=== PATIENT | female | born 1955 | race Caucasian/White ===

== ENCOUNTER 2016-04-18 07:27 | Inpatient (IN) | payer OTHER ==
[2016-04-18] MEDS ORDERED: 1/2 NS 500 ML ONE ×2 (08:21→12:51)
[2016-04-18 08:32] LABS: HEMATOCRIT 34.7 % (37.0-47.0); HEMOGLOBIN 11.2 g/dL (12.0-16.0); MCH 31.5 PG (27-31); MCHC 32.3 g/dL (33-37); MCV 97.5 FL (81-99); MPV 9.3 FL (7.4-10.4); RBC 3.56 XMIL (4.2-5.4)
[2016-04-18 08:41] LABS: CALCIUM 9.1 mg/dL (8.8-10.2); POTASSIUM 5.3 mmol/L (3.5-5.1)
[2016-04-18] MEDS ORDERED: CORDARONE PO ONE (09:50)
[2016-04-18] MEDS ORDERED: PEPCID ONE (09:57)
[2016-04-18] MEDS ORDERED: REGLAN ONE (09:57)
[2016-04-18] MEDS ORDERED: LOPRESSOR ONE (09:58)
[2016-04-18] MEDS ORDERED: KEFZOL ONE (10:59)
[2016-04-18] MEDS ORDERED: DIPRIVAN 1% ONE (12:09)
[2016-04-18] MEDS ORDERED: MORPHINE ONE (12:15)
[2016-04-18] MEDS ORDERED: HYDROXYZINE PO PRN ×2 (12:25→19:03)
[2016-04-18] MEDS ORDERED: BENADRYL PO PRN (12:25)
[2016-04-18] MEDS ORDERED: SYSTANE EYE DROPS BOTH EYES PRN (12:25)
[2016-04-18] MEDS ORDERED: ZOFRAN PO PRN (12:25)
[2016-04-18] MEDS ORDERED: DULCOLAX PR PRN (12:25)
[2016-04-18] MEDS ORDERED: SALINE LOCK IV FLUID XX ONE (12:41)
[2016-04-18] MEDS ORDERED: EPHEDRINE ONE (12:51)
[2016-04-18] MEDS ORDERED: XYLOCAINE-MPF 2% ONE (12:51)
--- NOTE | 2016-04-18 13:15 | OPERATIVE NOTE ---
PROCEDURE DATE: 04/18/2016 PROCEDURE PERFORMED: Left below-knee amputation. SURGEON: Jareth Hale MD CORROSION CONTROL ENGINEER: Radha. PREOPERATIVE DIAGNOSIS: Ischemic gangrene of the left heel. POSTOPERATIVE DIAGNOSIS: Ischemic gangrene of the left heel. OTHER DIAGNOSES: 1. Diabetes. 2. Chronic kidney disease, stage 5. INDICATIONS: This is a 60-year-old diabetic with end-stage renal disease who has ischemic gangrene of the left heel. She has had inadequate blood flow for healing. She is scheduled for a left below-knee amputation. Her PVRs showed that a BKA should heal. DESCRIPTION OF PROCEDURE: Satisfactory general anesthesia was achieved. The left leg was prepped and draped in a sterile fashion. We marked the skin 3 fingerbreadths below the tibial tubercle anteriorly and then marked 15 cm distal to that posteriorly. We then made a curvilinear incision anteriorly in the area marked below the tibial tubercle and then we made a posterior flap that extended 15 cm distal to that. We carried our incision into the subcutaneous tissue. We then used electrocautery to cauterize down to the tibia. We cauterized through the anterior compartment muscle. We then passed a Gigli saw behind the tibia and transected the tibia with the Gigli saw, tapering it anteriorly. We then raised the periosteum off the fibula and cut it with a bone biter proximal to the transected the tibia. The anterior tibial vessels were clamped, divided, and suture ligated with a 2-0 silk suture ligature. We then used a guillotine knife to go behind both the tibia and fibula to the distal extent of our posterior flap and then transected the muscle. At that point, we handed off the distal leg and foot. We achieved satisfactory hemostasis with 3- 0 silk suture ligatures. We debrided back some of the tendinous tissue. We then irrigated. We used a file on the tibia to smooth it. We then irrigated the stump copiously with warm saline. Hemostasis was satisfactory. We then folded the muscle anteriorly using 0 Polysorb to approximate the muscle to the tibia and the anterior compartment muscle. We then used 3-0 Polysorb in the subcutaneous tissue. We then closed the skin with antonio. The skin was under no tension. We then used Xeroform gauze, followed by sterile 4 x 4's, followed by sterile Kerlix. We then used an OCL splint to splint the knee straight. We then used a 6-inch YVETTE on top of that to secure the OCL splint. She tolerated it well. Estimated blood loss was about 100 mL. She was sent to the recovery room in satisfactory condition.
[2016-04-18] MEDS: PHOSLO PO SCH ×2 (14:41→18:28)
[2016-04-18] MEDS: ULTRAM PO SCH ×3 (14:41→21:21)
[2016-04-18] MEDS ORDERED: INSULIN PEN NEEDLES ONE (16:26)
[2016-04-18] MEDS ORDERED: ZOFRAN IV PRN (18:59)
[2016-04-18] MEDS ORDERED: PROTEIN SUPPLEMENT PO SCH (21:00)
[2016-04-18] MEDS: RESTASIS 0.05% OPH DROPS BOTH EYES SCH (21:20)
[2016-04-18] MEDS: PERIDEX MT SCH (21:20)
[2016-04-18] MEDS: NEURONTIN PO SCH (21:22)
[2016-04-18] MEDS: LANTUS SUBQ SCH ×2 (21:23→21:28)
[2016-04-18] MEDS: HYDROCORTISONE 0.5% CREAM TOP SCH (21:24)
[2016-04-18] MEDS: NORCO-10 PO PRN (22:54)
[2016-04-18] MEDS: LOPRESSOR PO SCH (22:55)
--- NOTE | 2016-04-18 23:12 | CONSULTATION ---
DATE OF CONSULTATION: 04/18/2016 Reason FOR ADMISSION: Left BKA. REASON FOR CONSULTATION: ESRD management. CONSULTING PHYSICIAN: Dr. Hale. HISTORY OF PRESENT ILLNESS: This is a 60-year-old female well known to our service for end-stage renal disease on hemodialysis on a Monday, , Monday schedule at the [facility]. The patient was admitted today for a planned left BKA secondary to left heel gangrene. The patient underwent the surgery today satisfactorily and is status post recovery. We have been asked to see her to maintain her hemodialysis schedule and assist with medical management. PAST MEDICAL HISTORY: End-stage renal disease. Hemodialysis Monday, , Monday, diabetes, hypertension, paroxysmal atrial fibrillation, chronic constipation, depressive disorder, hyperlipidemia, hypertension, anemia secondary to ESRD, hyperphosphatemia secondary to ESRD, osteodystrophy secondary to ESRD. PAST SURGICAL HISTORY: She has had multiple amputations to the right and left hand, she has had 2 BKAs now. She has dialysis access cataract surgery. ALLERGIES: Vancomycin. HOME MEDICATIONS: As per chart. FAMILY HISTORY: Noncontributory. SOCIAL HISTORY: She lives at the [facility] in [place]. No ETOH, tobacco or illicit drug use. REVIEW OF SYSTEMS: Pain to recent surgical site. Negative otherwise. EXAM: Vital signs: Temperature 97.6 degrees, pulse 52, respiratory rate 16, blood pressure 109/70, intake and output have not been measured. General: This is a chronically ill-appearing middle-aged female who appears much older than her stated age. She is awake, alert. HEENT: Normocephalic atraumatic. Oral mucosa dry, dentition poor, tongue is midline. Neck: Supple. There is no JVD. Cardiovascular: Regular rate and rhythm. Systolic murmur. Pulmonary: Equal excursion. She is clear bilaterally. There is no increased work of breathing. Abdomen: Obese, soft, positive bowel sounds. : Not inspected. She has minimal void with hemodialysis assist. Extremities: She has bilateral BKA, left most recent is wrapped in a gauze and Elmer bandage. There was no blood noted to the bandage. Upper extremities with multiple areas of amputation well healed. Integumentary: Skin is warm and dry otherwise. She is pale. Neuro: Grossly nonfocal. She is slow to speak. LAB DATA: WBC of 10.4, hemoglobin 11.2, hematocrit 34.7 and platelet count of 325,000. Sodium 132, potassium 5.3, CO2 25, BUN 33, creatinine 3.1, calcium 9.1. ASSESSMENT AND PLAN: 1. End-stage renal disease management. Patient is due for her routine dialysis Monday. Will plan to dialyze her at that time. Check labs in the morning. Adjust bath as appropriate. 2. Left below-knee amputation new followed by Dr. Hale. 3. Electrolytes, acid-base balance, anemia. These are stable. Continue to monitor. Treat as warranted. 4. Hypertension controlled. 5. Fluid volume. She is not overloaded. Data reviewed, discussed with Damaso Krueger on 04/18/16. I agree with the above assessment and plan of care. rg Dictated by TRICIA Taylor for Syd Amaral MD MTDD
[2016-04-19] MEDS: NORCO-10 PO PRN ×2 (05:56→23:01)
[2016-04-19] MEDS: NEPHROCAPS PO SCH ×2 (06:54→21:10)
[2016-04-19] MEDS ORDERED: NS 2,000 ML MISC PRN (08:07)
[2016-04-19] MEDS ORDERED: NS 2,000 ML ONE ×2 (08:57→13:17)
[2016-04-19] MEDS ORDERED: HEPARIN ONE ×2 (08:57→13:17)
[2016-04-19] MEDS: ULTRAM PO SCH ×4 (08:59→21:17)
[2016-04-19] MEDS: HYDROCORTISONE 0.5% CREAM TOP SCH ×3 (09:00→21:13)
[2016-04-19] MEDS: PHOSLO PO SCH ×3 (09:00→19:06)
[2016-04-19 16:08] LABS: ALBUMIN 2.8 g/dL (3.5-5.0); CALCIUM 8.5 mg/dL (8.8-10.2)
--- NOTE | 2016-04-19 16:18 | PROGRESS NOTE ---
DATE: 04/19/2016 DATE AND TIME SEEN: 04/19/2016 at 0840 hours. SUBJECTIVE: Ms. Smith is currently resting in bed. She is in no acute distress. She is in need for assistance with eating her breakfast. OBJECTIVE: Vital Signs: Temperature 98.9 degrees, blood pressure 110/37, heart rate 58, and respirations 18. She is on 3 L nasal cannula. Last recorded saturation 98%. She has had 700 in; she has had 100 out per estimated blood loss from debridement yesterday. LABS: Her most recent labs: These are currently pending with need to be drawn on dialysis. Her last potassium was 5.3 and a hemoglobin of 11.2 on the . PHYSICAL EXAMINATION: General: This is a 60-year-old white female. She is chronically ill in appearance. She is in no acute distress. She is awake and alert. Skin: Warm and dry. HEENT: Normocephalic, atraumatic. Mucous membranes are dry. Poor dentition. Neck: Supple. Trachea midline. No JVD. Cardiovascular: Regular rate and rhythm. She has a soft systolic murmur. Pulmonary: Clear to auscultation bilaterally. Equal excursion. No use of accessory muscles. Abdomen: Large, round, soft, nontender. Hypo bowel sounds. Genitourinary: Not inspected. Minimal void with dialysis assist. Extremities: Have bilateral BKA, left most recent. This is wrapped in a gauze with an Elmer bandage to the right. No drainage noted to the bandage. On upper extremities, continue with multiple areas of amputation as well, but healed. Integumentary: Skin is warm and dry. No rashes or lesions. Neurological: Alert and oriented x3. ASSESSMENT AND PLAN: 1. End-stage renal disease. Patient is due for her routine dialysis treatment today. We will place her on a 2 K bath. She is to dialyze for 3.5 hours. We will attempt to pull her to her dry weight. 2. Electrolytes and acid-base balance. Again, with correction on dialysis. 3. Below the knee amputation followed by Dr. Hale on the left. 4. Hypertension. This is currently controlled. 5. Fluid volume overload. This is controlled with dialysis. I would like to thank you for allowing us to follow with this patient. Data reviewed, discussed with Israel Manuel on 04/19/16. I agree with the above assessment and plan of care. rg Dictated by TRICIA Skelton for Syd Amaral MD [facility]
[2016-04-19] MEDS: MIRALAX PO SCH (19:04)
[2016-04-19] MEDS: LOPRESSOR PO SCH ×2 (19:04→21:10)
[2016-04-19] MEDS: NEURONTIN PO SCH ×2 (19:04→21:10)
[2016-04-19] MEDS: LACTULOSE PO SCH (19:04)
[2016-04-19] MEDS: PRILOSEC PO SCH (19:05)
[2016-04-19] MEDS: PRINIVIL PO SCH (19:05)
[2016-04-19] MEDS: RESTASIS 0.05% OPH DROPS BOTH EYES SCH (19:05)
[2016-04-19] MEDS: PERIDEX MT SCH ×2 (19:05→21:10)
[2016-04-19] MEDS: PERCOCET-10 PO PRN (21:10)
[2016-04-19] MEDS: LANTUS SUBQ SCH (21:13)
[2016-04-20] MEDS: DILAUDID IV PRN ×3 (00:31→11:54)
[2016-04-20] MEDS: PERCOCET-10 PO PRN ×3 (04:11→21:08)
[2016-04-20] MEDS: RESTASIS 0.05% OPH DROPS BOTH EYES SCH ×4 (04:11→22:06)
--- NOTE | 2016-04-20 09:07 | PROGRESS NOTE ---
DATE: 04/20/2016 SUBJECTIVE: Patient is resting in bed. She is complaining that her pain has not been adequately controlled. She states that she had to get to the point of crawling before she could get any p.r.n. medication. OBJECTIVE: Vital Signs: Temperature 97.9 degrees, pulse 57, respiratory rate 16, blood pressure 128/54, intake 640 mL, output 3 L. Physical Examination: General: Middle-aged female who is chronically ill- appearing and appears much older than her stated age. She is awake and alert, verbal today. HEENT: Normocephalic, atraumatic. Dentition poor. Oral mucosa is dry. Neck: Supple. Trachea midline. Cardiovascular: Regular rate and rhythm with a systolic murmur noted. Pulmonary: She has equal excursion. She is clear bilaterally. Abdomen: Round, soft. Positive bowel sounds. : Not inspected. She has minimal void with hemodialysis assist. Extremities: She has a right hand, partial wrist amputation that is old. Continues to be wrapped in gauze and an Elmer bandage. She has bilateral BKA, the left most recent. The left is wrapped with gauze and an Elmer bandages. There is no drainage noted. Integumentary: Skin is pale, warm, and dry. Laboratory Data: I have no labs today. These will be drawn on dialysis tomorrow. ASSESSMENT AND PLAN: 1. End-stage renal disease management. The patient went for routine dialysis yesterday. We will plan to keep her on a Monday, , Monday schedule while she is here in the hospital. We did removed 3 L UF yesterday. 2. Electrolytes, acid-base balance, anemia. We will check labs on dialysis day and correct as warranted. 3. Left knee below knee amputation, followed by surgery. 4. Pain control. I did explain to the patient that the goal of pain control was to make pain tolerable but that status post surgery pain is expected. We will defer to the surgeon for decisions made regarding her pain control following her surgery. 5. Hypertension, controlled. Seen, data reviewed, discussed with Damaso Krueger on 04/20/16. I agree with the above assessment and plan of care. rg Dictated by TRICIA Taylor for Syd Amaral MD [facility]
[2016-04-20] MEDS: MIRALAX PO SCH ×2 (09:41→11:10)
[2016-04-20] MEDS: LACTULOSE PO SCH (09:41)
[2016-04-20] MEDS: PERIDEX MT SCH ×2 (09:41→21:08)
[2016-04-20] MEDS: HYDROCORTISONE 0.5% CREAM TOP SCH ×2 (09:42→21:37)
[2016-04-20] MEDS: NEURONTIN PO SCH ×2 (09:42→21:05)
[2016-04-20] MEDS: LOPRESSOR PO SCH ×2 (09:42→22:05)
[2016-04-20] MEDS: SEPTRA DS PO SCH ×2 (09:42→11:08)
[2016-04-20] MEDS: PRINIVIL PO SCH (09:42)
[2016-04-20] MEDS: PHOSLO PO SCH ×4 (09:43→18:53)
[2016-04-20] MEDS: CORDARONE PO SCH ×2 (09:43→11:07)
[2016-04-20] MEDS: ULTRAM PO SCH ×4 (11:08→21:38)
[2016-04-20] MEDS: PRILOSEC PO SCH (11:11)
--- NOTE | 2016-04-20 11:57 | VASCULAR LAB ---
PROCEDURE NAME: Arterial Limited Low Extremity - 04/18/2016 STUDY: Segmental Doppler examination. REQUESTING PHYSICIAN: Jareth Hale MD BEAUTY ADVISOR: Jaci INDICATION: Amputation level. FINDINGS: Pressure of the left brachial is 121. High thigh on the left greater than 200. Low thigh on the left greater than 200. Calf pressure greater than 230. DP greater than 210. Posterior tibial absent at the ankle. Waveforms are blunted throughout. SUMMARY: Noncompressible veins throughout the lower extremity although there is pulsatile flow at least in the dorsalis pedis at the ankle. No posterior tibial signal.
[2016-04-20] MEDS: NEPHROCAPS PO SCH (21:08)
[2016-04-20] MEDS: LANTUS SUBQ SCH (21:37)
[2016-04-20] MEDS ORDERED: SSD CREAM TOP SCH (23:30)
[2016-04-21] MEDS: NORCO-10 PO PRN (05:06)
[2016-04-21] MEDS: SSD CREAM TOP SCH ×2 (06:49→10:14)
[2016-04-21] MEDS ORDERED: HEPARIN IV PRN (07:22)
[2016-04-21] MEDS ORDERED: NS 2,000 ML MISC PRN (07:22)
[2016-04-21] MEDS ORDERED: TIGHT: 0.2 ML/HR MISC PRN (07:22)
[2016-04-21] MEDS ORDERED: SODIUM CHLORIDE 0.9% 10 ML ONE (08:22)
[2016-04-21] MEDS ORDERED: SSD CREAM TOP SCH (09:00)
[2016-04-21] MEDS: DILAUDID IV PRN ×3 (09:22→11:29)
[2016-04-21] MEDS ORDERED: NS 2,000 ML ONE (09:59)
[2016-04-21] MEDS ORDERED: HEPARIN ONE (09:59)
[2016-04-21] MEDS: HYDROCORTISONE 0.5% CREAM TOP SCH (10:03)
[2016-04-21] MEDS: LACTULOSE PO SCH (10:03)
[2016-04-21] MEDS: PHOSLO PO SCH ×3 (10:04→16:01)
[2016-04-21] MEDS: PERIDEX MT SCH (10:04)
[2016-04-21] MEDS: NEURONTIN PO SCH (10:04)
[2016-04-21] MEDS: PRILOSEC PO SCH (10:04)
[2016-04-21] MEDS: RESTASIS 0.05% OPH DROPS BOTH EYES SCH (10:05)
[2016-04-21] MEDS: CORDARONE PO SCH (10:05)
[2016-04-21] MEDS: ULTRAM PO SCH ×3 (10:05→16:01)
[2016-04-21] MEDS: SEPTRA DS PO SCH (10:05)
[2016-04-21] MEDS: PRINIVIL PO SCH (10:07)
[2016-04-21] MEDS: LOPRESSOR PO SCH (10:08)
[2016-04-21] MEDS: MIRALAX PO SCH (10:08)
--- NOTE | 2016-04-21 15:08 | DISCHARGE SUMMARY ---
ADMISSION DATE: 04/18/2016 DISCHARGE DATE: 04/21/2016 PRIMARY DISCHARGE DIAGNOSIS: Ischemic gangrene of the left foot. OTHER DIAGNOSES: 1. End-stage renal disease. 2. Severe peripheral vascular disease. 3. Insulin-dependent diabetes. PRIMARY PROCEDURE: Left below-knee amputation. HISTORY: This is an unfortunate, 60-year-old who has ischemic gangrene of the left heel. She has had a previous trans met amputation and now has inadequate flow and un-bypassable vessels in order to try to salvage this foot. She is not ambulatory. She has had a previous AKA on the other leg. HOSPITAL COURSE: She was admitted, went to the operating room, and underwent the left BKA without event. She has really done satisfactorily postop. She dialyzed both on the and the . Her pain seems to be controlled. Her bandage is dry. Her wound looks good. It is felt she could be transferred back to the residential. She will resume her usual medications. Will give her oxycodone for pain. She will continue with her dialysis 3 times a week. She will return to see me in the office, Dr. Hlae that is, in 3 weeks for staple removal. She will get transfer training at the residential as she can tolerate it.
[2016-04-21 16:13] VITALS: BP 126/37
--- NOTE | 2016-04-21 16:18 | PROGRESS NOTE ---
DATE: 04/21/2016 SUBJECTIVE: Ms. Smith is resting quietly in bed. She states that she has been uncomfortable all night. She denies chest pain. No increased work of breathing. OBJECTIVE: Her most recent vital signs are temperature 99.1 degrees, blood pressure 139/53, heart rate 69, respirations 18. She is on room air. Last recorded saturation 94%. She has had 440 in. She has had 0 recorded out with need for dialysis. LABS: Her last set of labs are sodium 124, potassium 6, chloride is 88, CO2 22 , BUN 44, creatinine 3.8. Calcium 8.5, phosphorus 4.8, albumin 2.8, with a hemoglobin on the 13th of 11.2. Labs are currently pending. PHYSICAL EXAMINATION: General: This is a 60-year-old white female who appears chronically ill. She is in no acute distress. Skin: Warm and dry. HEENT: Normocephalic, atraumatic. Dentition remains poor. Oral mucous membranes are dry. Neck: Supple. Trachea midline. No jugular venous distention. Cardiovascular: Regular rate and rhythm with a positive systolic murmur. Lungs: Clear to auscultation anteriorly. Equal excursion on room air. Abdomen: Large round soft nontender positive bowel sounds. Genitourinary: Minimal void with dialysis assist. Extremities: She has a right hand with partial wrist amputation. She continues to have a wrapped gauze, Elmer bandage. Has a bilateral below the knee amputation, the left most recent, with an Elmer wrap and gauze. No drainage noted. Integumentary: Skin is warm and dry and pale. Neurological: Alert and oriented x3. ASSESSMENT AND PLAN: 1. End-stage renal disease. Patient is due for her routine dialysis today. We will place her on a 3 K bath. She is to dialyze for 3.5 hours. We will attempt to pull her to her dry weight. 2. Electrolytes, acid-base balance, and anemia. These have been stable. We will check these labs in the a.m. 3. Pain controlled. This is per surgery. 4. Hypertension. This remains controlled. I would to thank you for allowing us to follow with this patient. Seen, data reviewed, discussed with Israel Manuel on 04/21/16. I agree with the abive assessment and plan of care. rg Dictated by TRICIA Skelton for Syd Amaral MD [facility]TD[facility]
== END 2016-04-21 17:12 | DRG 239 ==
LOC: SURHOLD 07:27 → 4N 12:10 → DIRADM 14:28 → 4N 14:30
PROVIDERS: ADMIT Surgery; ATTEND Surgery
PROC: 0Y6J0Z1 Detachment at Left Lower Leg, High, Open Approach (ICD-10-PCS; principal; 2016-04-18 10:32)
PROC: 5A1D60Z (ICD-10-PCS; 2016-04-19)
DX: E11.52 Type 2 diabetes mellitus with diabetic peripheral angiopathy with gangrene (principal); N18.6 End stage renal disease; E11.22 Type 2 diabetes mellitus with diabetic chronic kidney disease; I12.0 Hypertensive chronic kidney disease with stage 5 chronic kidney disease or end stage renal disease; I48.0 Paroxysmal atrial fibrillation; L97.429 Non-pressure chronic ulcer of left heel and midfoot with unspecified severity; E11.621 Type 2 diabetes mellitus with foot ulcer; E78.5 Hyperlipidemia, unspecified; D63.1 Anemia in chronic kidney disease; E87.70 Fluid overload, unspecified; K21.9 Gastro-esophageal reflux disease without esophagitis; K59.09 Other constipation; H40.9 Unspecified glaucoma; F32.9 Major depressive disorder, single episode, unspecified; Z99.2 Dependence on renal dialysis; Z89.611 Acquired absence of right leg above knee; Z79.899 Other long term (current) drug therapy; Z79.4 Long term (current) use of insulin
CPT/HCPCS: 80048; 80069; 82948; 85027; 88307; 93922; 94760; 94761; 94799; J0690; J1170; J1644; J2270; J7030

== ENCOUNTER 2016-06-20 10:29 | Inpatient (IN) ==
[2016-06-20] MEDS ORDERED: LR 1,000 ML ONE (11:14)
[2016-06-20] MEDS ORDERED: ZOSYN 3.375 GM/NS 3.375 GM/50 ML IVPB IV ONE (12:00)
[2016-06-20 12:17] LABS: HEMATOCRIT 36.5 % (37.0-47.0); HEMOGLOBIN 11.4 g/dL (12.0-16.0); MCH 31.4 PG (27-31); MCHC 31.2 g/dL (33-37); MCV 100.6 FL (81-99); MPV 9.7 FL (7.4-10.4); RBC 3.63 XMIL (4.2-5.4)
[2016-06-20 12:35] LABS: CALCIUM 9.6 mg/dL (8.8-10.2); POTASSIUM 3.9 mmol/L (3.5-5.1)
[2016-06-20] MEDS ORDERED: D5 LR 1,000 ML ONE (16:11)
[2016-06-20] MEDS ORDERED: PRIMAXIN 500 MG in NS 100 ML IV ONE (17:30)
[2016-06-20] MEDS ORDERED: NORCO-10 PO PRN (18:24)
[2016-06-20] MEDS ORDERED: PERCOCET-10 PO PRN (18:24)
[2016-06-20] MEDS ORDERED: HYDROXYZINE PO PRN (18:24)
[2016-06-20] MEDS ORDERED: ZOFRAN PO PRN (18:24)
[2016-06-20] MEDS ORDERED: BENADRYL PO PRN (18:24)
[2016-06-20] MEDS ORDERED: SYSTANE EYE DROPS BOTH EYES PRN (18:24)
[2016-06-20] MEDS ORDERED: D5 LR 1,000 ML IV SCH (18:24)
[2016-06-20] MEDS ORDERED: DULCOLAX PR PRN (18:24)
[2016-06-20] MEDS: INVANZ 0.5 GM in NS 50 ML IV SCH (20:15)
[2016-06-20] MEDS: RESTASIS 0.05% OPH DROPS BOTH EYES SCH (20:32)
[2016-06-20] MEDS: ULTRAM PO SCH (20:32)
[2016-06-20] MEDS: HYDROCORTISONE 0.5% CREAM TOP SCH (20:32)
[2016-06-20] MEDS: LOPRESSOR PO SCH (20:33)
[2016-06-20] MEDS: NEURONTIN PO SCH (20:33)
--- NOTE | 2016-06-20 20:52 | OPERATIVE NOTE ---
PROCEDURE DATE: 06/20/2016 PROCEDURE PERFORMED: 1. Excision and debridement of skin, soft tissue of the left below-knee amputation stump (2 x 7 cm). 2. Excision and debridement of right hip decubitus (skin, soft tissue and tendon in (7 x 6 cm). SURGEON: Jareth Hale MD. STOCK SAW OPERATOR: Kings. PREOPERATIVE DIAGNOSIS: 1. Ischemic necrosis, right hip decubitus. 2. Wound dehiscence with necrosis, left below-knee amputation stump. 3. End-stage renal disease. 4. Diabetes. POSTOPERATIVE DIAGNOSIS: 1. Ischemic necrosis, right hip decubitus. 2. Wound dehiscence with necrosis, left below-knee amputation stump. 3. End-stage renal disease. 4. Diabetes. DESCRIPTION OF PROCEDURE: Satisfactory monitoring anesthesia care was established with the patient in decubitus position. The left stump was prepped and draped in a sterile fashion. We sharply debrided the eschar at the edges, along with the necrotic tissue in the central portion of the dehisced wound. This measured about 2 x 7 cm. We got down to viable tissue. We irrigated out the wound and achieved satisfactory hemostasis with electrocautery, then packed it with saline- impregnated Kerlix and covered it with an Elmer. We then turned the patient on her right side up and exposed the right hip decubitus. Prepped and draped it in a sterile fashion. We then sharply debrided it. There was undermining of the tissue underneath the opening in the skin. This involved the skin, soft tissue, and tendon measuring 7 x 6 cm. We removed the necrotic tissue down to viable tissue. We irrigated out the wound and then packed it with Betadine-impregnated gauze and covered with ABD. She tolerated the procedure satisfactorily was sent to the recovery room in satisfactory condition. cc: Jareth Hale MD
[2016-06-20] MEDS ORDERED: PATIENT'S OWN MED PO SCH (21:00)
--- NOTE | 2016-06-20 22:18 | CONSULTATION ---
DATE OF CONSULTATION: 06/20/2016 It should be noted the patient was unable to provide a history. No family member was present and in the computer there was not much material either. CONCLUSION: The patient is status post debridement of a right hip decubitus ulcer which extended to the bone. A culture taken from the ulcer grew an extended spectrum beta-lactamase producing E. coli. The patient has received 1 dose of imipenem and has tolerated it well. RECOMMENDATIONS: 1. I have started the patient on ertapenem. I have decreased the dose because of the patient's renal failure. The infection extended to the bone but the patient by definition has osteomyelitis of the hip. 2. I plan to treat the patient with Invanz at a dose of 500 mg daily for a total of 6 weeks. DISCUSSION: As mentioned above, there is no additional information. The patient is a dialysis patient. She has had all of her limbs amputated except the left arm. She is on dialysis. She has an AV fistula in the upper part of the right arm. The patient's CBC today showed a white count of 17,060, hemoglobin 11.4, and platelet count of 201,000. Creatinine is 2.8, GFR is 17. ALLERGIES: The patient's chart lists allergies to the following medications: Vancomycin, cefadroxil, magnesium hydroxide. HOME MEDICATIONS: Tramadol, Septra, oxycodone, Zofran, omeprazole, Lopressor lisinopril, hydroxyzine, Neurontin, Benadryl eye drops, amiodarone and insulin. PHYSICAL EXAMINATION: Vital Signs: Temperature is 99 degrees, pulse is 55, respirations 12, blood pressure 157/58. Patient's weight is listed as 125 pounds. General: This is a chronically ill-appearing, middle-aged female. She is in no acute distress. Head, eyes, ears, nose, throat: No drainage noted from the nose or ears. Patient did not respond to verbal stimuli. Neck: No meningismus. Thorax: No increased AP diameter of the chest. Lungs: Clear to auscultation. Cardiovascular: Heart rate is regular. Abdomen: Soft and not tender. Extremities: As mentioned above, the left arm is intact. The other extremities have been amputated. There is an AV fistula in the upper part of the patient's right arm. PAST MEDICAL HISTORY / REVIEW OF SYSTEMS: We were unable to find any past medical history. I could not perform a review of systems with the patient. cc: MD Jareth Hull MD
[2016-06-21] MEDS: PRILOSEC PO SCH (06:17)
[2016-06-21] MEDS ORDERED: AMIDATE ONE (08:28)
[2016-06-21] MEDS ORDERED: ROBINUL ONE (08:28)
[2016-06-21] MEDS ORDERED: HEPARIN ONE (08:59)
[2016-06-21] MEDS ORDERED: NS 2,000 ML ONE (08:59)
[2016-06-21] MEDS ORDERED: SEPTRA DS PO SCH (09:00)
[2016-06-21 09:05] LABS: ALBUMIN 2.8 g/dL (3.5-5.0); CALCIUM 9.8 mg/dL (8.8-10.2); POTASSIUM 3.8 mmol/L (3.5-5.1)
[2016-06-21] MEDS: LACTULOSE PO SCH (09:10)
[2016-06-21] MEDS: ULTRAM PO SCH ×5 (09:10→20:34)
[2016-06-21] MEDS: NEURONTIN PO SCH ×2 (09:11→20:34)
[2016-06-21] MEDS: LOPRESSOR PO SCH ×2 (09:11→20:34)
[2016-06-21] MEDS: CORDARONE PO SCH (09:11)
[2016-06-21] MEDS: PHOSLO PO SCH ×4 (09:11→19:13)
[2016-06-21] MEDS: PRINIVIL PO SCH (09:11)
[2016-06-21] MEDS: RESTASIS 0.05% OPH DROPS BOTH EYES SCH ×2 (09:12→20:34)
[2016-06-21] MEDS: HYDROCORTISONE 0.5% CREAM TOP SCH ×2 (09:12→20:34)
[2016-06-21] MEDS: MIRALAX PO SCH (09:12)
[2016-06-21] MEDS: NS 2,000 ML MISC PRN ×2 (10:18→11:54)
--- NOTE | 2016-06-21 12:52 | CONSULTATION ---
DATE OF CONSULTATION: 06/21/2016 REASON FOR CONSULTATION: Assistance with management of ESRD. HISTORY OF PRESENT ILLNESS: Ms. Smith is a 60-year-old, white female who is well known to us. She has multiple amputations secondary to peripheral vascular disease and has ongoing ulcers on the hip and the stump. She was admitted for debridement. Postoperatively, she had altered sensorium and did not recover quickly from her anesthesia so she was moved to the intensive care unit. This morning, she is more alert but she is complaining of ongoing pain, especially on her right hip. No other new complaints. PAST MEDICAL HISTORY: 1. ESRD. 2. Diabetes. 3. Peripheral vascular disease. 4. Coronary artery disease. 5. Congestive heart failure. 6. Hyperphosphatemia. 7. Anemia. ALLERGIES: Vancomycin, cefadroxil. SOCIAL HISTORY: She resides in [facility] in [place]. FAMILY HISTORY: Otherwise noncontributory. REVIEW OF SYSTEMS: Otherwise noncontributory. PHYSICAL EXAMINATION: Vital Signs: Blood pressure 154/62, heart rate 58, respirations 14, afebrile. General: She is a middle-aged woman, chronically ill, no distress. Skin: Warm and dry. HEENT: Conjunctivae are pink. Pupils are equal. Oropharynx is dry. Neck: Neck veins are not appreciated. Heart: Regular without gallops or murmurs present. Lungs: Have equal breath sounds. No crackles. Abdomen: Soft, obese, nontender. Bowel sounds present. Extremities: Have no edema, clubbing, or cyanosis. Surgical wounds are dressed. LABORATORY DATA: Sodium 134, potassium 3.8, chloride 96, bicarbonate 22, BUN 30 , creatinine 3.1. Hemoglobin 11.4. IMPRESSION: 1. End-stage kidney disease. She will have her routine hemodialysis today. A 3 potassium bath and we will use her outpatient dry weight as our target. 2. Pain. She was adjusted in the bed with some improvement. Continue current analgesic regimen. 3. Anemia. We will continue to dose with erythropoietin while she is an inpatient. 4. Altered sensorium. This seems to be resolved this morning to her baseline. This is likely a postanesthesia effect. cc: MD Jareth Lopez MD MTDD
[2016-06-21] MEDS ORDERED: BLISTEX MEDICATED BERRY LIP BALM TOP PRN (15:27)
--- NOTE | 2016-06-21 19:22 | PROGRESS NOTE ---
DATE: 06/21/2016 PRESENT ILLNESS: The patient is status post excision and debridement of the patient's right hip decubitus ulcer and left [id number] amputation wound dehiscence. MEDICATIONS: The patient is receiving Invanz in a dose of 0.5 g IV every 24 hours. The dose has been decreased because of the patient's renal failure. PHYSICAL EXAMINATION: Vital Signs: Temperature is 98.4 degrees, pulse 59, respirations 18, blood pressure 168/56. General: This is an ill-appearing middle-aged female. She is in no acute distress. Lungs: Clear to auscultation. Cardiovascular: Regular heart rate. Abdomen: Soft and nontender. The patient's left leg wound has a dressing on it. The dressing is intact. The patient's right hip wound also has a dressing on it. The dressing is intact. The patient has an AV fistula in the upper part of her right arm. LABORATORY AND X-RAY: There is no new microbiology result. Laboratory studies include a CBC with a white count of 17,060, hemoglobin 11.4, and platelet count 201,000. Creatinine is 3.1, GFR is 15. ASSESSMENT AND PLAN: 1. Patient has an extended spectrum beta lactamase producing Escherichia coli involvement of the right hip. The plan is to continue with ertapenem. Since the infection went down to the bone, I plan to continue ertapenem for a total of 6 weeks. 2. Comorbidities include the following: She has end-stage renal disease and is on dialysis. She also has gastroesophageal reflux disease, diabetes mellitus, peripheral vascular disease. cc: MD Jareth Hull MD
[2016-06-21] MEDS: INVANZ 0.5 GM in NS 50 ML IV SCH (20:36)
[2016-06-22 05:33] LABS: CALCIUM 9.4 mg/dL (8.8-10.2); POTASSIUM 3.2 mmol/L (3.5-5.1)
[2016-06-22] MEDS: PRILOSEC PO SCH (06:18)
[2016-06-22] MEDS: LACTULOSE PO SCH (08:46)
[2016-06-22] MEDS: RESTASIS 0.05% OPH DROPS BOTH EYES SCH (08:47)
[2016-06-22] MEDS: PHOSLO PO SCH ×2 (08:47→12:05)
[2016-06-22] MEDS: CORDARONE PO SCH ×2 (08:47→09:25)
[2016-06-22] MEDS: MIRALAX PO SCH (08:47)
[2016-06-22] MEDS: ULTRAM PO SCH ×2 (08:47→12:43)
[2016-06-22] MEDS: LOPRESSOR PO SCH ×2 (08:47→09:08)
[2016-06-22] MEDS: PRINIVIL PO SCH (08:48)
[2016-06-22] MEDS: NEURONTIN PO SCH (08:48)
[2016-06-22] MEDS ORDERED: EPOGEN SUBQ SCH (09:00)
[2016-06-22] MEDS: HYDROCORTISONE 0.5% CREAM TOP SCH (09:25)
[2016-06-22] MEDS ORDERED: D50W 250 ML, AMINOSYN 15% 500 ML, LIPOSYN 20% 250 ML IV SCH ×3 (09:30)
[2016-06-22 09:56] LABS: MANUAL DIFF NEEDED? NO
[2016-06-22 09:58] LABS: BASO% 0.2 % (0.0-0.8); EOS# 0.11 X1000 (0.0-0.7); EOS% 1.1 % (0.0-10.0); HEMATOCRIT 35.9 % (37.0-47.0); HEMOGLOBIN 11.4 g/dL (12.0-16.0); LYMPH# 0.44 X1000 (1.2-3.4); LYMPH% 4.3 % (20.5-51.1); MCH 30.9 PG (27-31); MCHC 31.8 g/dL (33-37); MCV 97.3 FL (81-99); MONO# 1.02 X1000 (0.11-0.59); MONO% 9.9 % (1.7-9.3); MPV 9.5 FL (7.4-10.4); NEUT% 84.5 % (42.2-75.2); PLT 153 X1000 (130-400); RBC 3.69 XMIL (4.2-5.4)
--- NOTE | 2016-06-22 10:29 | Diag Imaging Result Doc PS360 ---
EXAM: CHEST-PORTABLE HISTORY: cough COMMENT: There is a right pleural effusion which was not present on 07/16/2015. The heart size is slightly enlarged. There is some prominence of the pulmonary vascularity. There is patchy alveolar opacity in both upper lobes and the right middle and lower lobe. IMPRESSION: Right pleural effusion. Pulmonary edema. Electronically signed by Hector Grey 06/22/2016 10:27 AM
--- NOTE | 2016-06-22 10:47 | PROGRESS NOTE ---
DATE: 06/22/2016 SUBJECTIVE: She is somewhat somnolent today. Dozes off frequently during exam. States she feels bad but not able to localize. OBJECTIVE: Vital Signs: Blood pressure 155/75, heart rate 60, respirations 17, afebrile. Intake 1 L. Output 2.7 L. Physical Examination: General: No acute distress. Skin: Pale and dry. HEENT: Conjunctivae are pink. Pupils are equal. Neck: Neck veins are not visible. Trachea is midline. Heart: Regular without gallops. Lungs: She has a cough and breath sounds are shallow. Few coarse crackles. Abdomen: Soft, nontender. Bowel sounds present. Extremities: Have no edema, clubbing, or cyanosis. Laboratory Data: Sodium 137, potassium 3.2, chloride 98, bicarbonate 28, BUN 17, creatinine 2.4. Phosphorus 0.8, albumin 3. Hemoglobin 11.4. IMPRESSION: 1. End-stage kidney disease. She had her routine dialysis yesterday. 2. Electrolytes: Significant hypophosphatemia. I will give 2 doses of Neutra-Phos. 3. Nutrition. She has a renal diet ordered. I am not sure she can tolerate that because of her sensorium. 4. Cough. We will check chest x-ray. 5. Recent surgery. Hemoglobin is stable. Continue meropenem. cc: MD Jareth Lopez MD
[2016-06-22] MEDS: NEUTRA-PHOS PO SCH ×2 (11:40→14:52)
[2016-06-22 11:46] VITALS: BP 168/59
--- NOTE | 2016-06-22 12:40 | DISCHARGE SUMMARY ---
ADMISSION DATE: 06/20/2016 DISCHARGE DATE: 06/22/2016 PREOPERATIVE DIAGNOSES: 1. Infected left hip decubitus. 2. Dehiscence of left below knee amputation stump with necrosis. OTHER DIAGNOSES: 1. Chronic kidney disease stage V, on dialysis. 2. Insulin-dependent diabetes. 3. Severe peripheral vascular disease. 4. Decubitus ulcers. PRIMARY PROCEDURE: Excisional debridement of the right hip ulcer and the left BK stump. HOSPITAL COURSE: This is a 60-year-old, diabetic female, quite unfortunate, with complications of diabetes and kidney failure. She was admitted because of the infection to her right hip decubitus and her left BK stump. She underwent the excisional debridement on 06/20/2016. The cultures had grown ESBL positive E. coli. I consulted Dr. Anand who put her on Invanz. He agrees to treat her after each dialysis with a gram of Invanz. This should cover her bacteria. In the hospital, after her surgery she, did satisfactorily. We monitored her in the intensive care unit. Her sugars were adequately controlled. By the , it was felt she could be transferred back to the alf. She will treat each wound with Vashe impregnated gauze on her hip, sacrum, left BK stump. She is to return to the [facility] in 2 weeks for followup. She is to get a gram of Invanz after each dialysis. cc: Jareth Hale MD
--- NOTE | 2016-06-22 16:02 | CONSULTATION ---
DATE OF CONSULTATION: 06/22/2016 REASON FOR CONSULTATION: Medical management. HISTORY OF PRESENT ILLNESS: Ms. Smith is a 60-year-old female, well known to our service. She has had multiple amputations secondary to PVD and diabetes. She is here this admission for debridement of the left [id number] amputation stump and debridement of the right hip decubitus ulcer. This was done by Dr. Hale on 06/20/2016 without complication. She has been in the ICU since then. She tolerated the procedure well. She has been receiving antibiotic treatment per Dr. Anand. Her wound cultures did grow ESBL positive E. coli. Thus, the patient will need to be on carbapenem for multiple weeks. Overall, her hemodynamics are stable, at this time she is slightly sedated, but will awaken fairly easy to verbal stimulus. We have been asked to follow along for medical management. PAST MEDICAL HISTORY: 1. ESRD, on hemodialysis followed by Dr. Amaral. 2. Diabetes mellitus. 3. Peripheral vascular disease. 4. CAD. 5. CHF. 6. Anemia of chronic disease. 7. GERD. 8. Chronic pain. 9. Constipation. 10. Paroxysmal atrial fibrillation. 11. Hypertension. PAST SURGICAL HISTORY: Multiple amputations. She has had a right upper extremity amputation, below the elbow, right BKA and left BKA. SOCIAL HISTORY: Patient lives in a retirement in [place]. She does not smoke, drink or use drugs. FAMILY HISTORY: Noncontributory. REVIEW OF SYSTEMS: 14 point review of systems obtained and found to be negative with the exception of the HPI. IN-HOSPITAL MEDICATIONS: Please see MAR. ALLERGIES: Vancomycin, cefadroxil, milk of magnesia, hydrocodone. PHYSICAL EXAMINATION: Vital Signs: Blood pressure is 168/59, heart rate 56, respiratory rate is 21, O2 saturation 100% on room air. Temperature is 97.5 degrees. General: This is a disheveled and chronically ill appearing, 60-year-old female, lying in hospital bed. Slightly sedated. Neurologic: The patient will open her eyes to verbal stimulus, but she is confused. She does follow commands without any overt focal deficits noted. HEENT: Head is atraumatic and normocephalic. Her pupils are equal, round, and reactive to light. Oral mucosa is moist. Neck: Supple. Trachea is midline. Chest: Essentially clear to auscultation bilaterally. CARDIOVASCULAR: Regular rate and rhythm. S1-S2 is noted. A 1/6 murmur is also noted. GI: Soft, nondistended, nontender. Bowel sounds positive. Extremities: Lower extremities with surgical dressings that are clean, dry, and intact. Pull femoral pulses are diminished, but palpable bilaterally. LABORATORY FROM TODAY: WBC is 10.6, hemoglobin 11.4, hematocrit 35.9, platelet count 153,000. Sodium 137, potassium 3.2, chloride 98, CO2 28, anion gap 11, BUN 17, creatinine 2.4, glucose is 85, phosphorus 0.8, albumin 3. ASSESSMENT AND PLAN: 1. Wound infections as described above: Per Dr. Hale and his team. Surgical debridement has been done and antibiotics are per Dr. Anand. 2. Endstage renal disease and hemodialysis: Per Dr. Amaral, her phosphorus and potassium are being replaced. Otherwise, her hemoglobin and hematocrit and electrolytes are stable, as is her volume status. 3. Altered mental status: Likely metabolic secondary to recent surgery and infection. She does follow commands. 4. Diabetes mellitus: Continue her regimen. We will make sure she is on pattern sugars and sliding scale insulin. 5. Peripheral vascular disease: Continue her home medicine. This is chronic and stable. 6. Hypertension: Chronic and stable, continue home medications. 7. We would like to thank you for this consultation. We will continue to follow along with you. Dictated by TRICIA Lance for Rusty Rosario MD cc: TRICIA Lance MD Robert C. Walker, MD
== END 2016-06-22 16:12 ==
LOC: OR 10:29 → ICU 17:45
PROVIDERS: ADMIT Surgery; ATTEND Surgery
PROC: MS.IRRD (2016-06-20 16:24)